=== PATIENT | female | born 1950 | race Caucasian/White ===

== ENCOUNTER → 2017-01-02 | Outpatient (CLI) | payer BC ==
[~2017-01-02] MED LIST: DIAZIDE; POTA10CA28 PO; SIMV20TA2 PO; SYN75 PO
[2017-01-02 12:24] LABS: URINE APPEARANCE CLEAR (CLEAR); URINE BILIRUBIN NEG (NEG); URINE COLOR YELLOW; URINE NITRITE NEG (NEG); URINE PH 6.5 (4.5-7.5); URINE SPECIFIC GRAVITY 1.013 (1.000-1.030); UROBILINOGEN NEG (NEG)
[2017-01-02 12:35] LABS: MANUAL MICROSCOPIC REQUIRED? NO; REVIEW REQ? NO
== END | disposition home or self-care (01) ==
LOC: C.LAB1850 10:06
PROVIDERS: ATTEND Family Medicine
DX: R39.9 Unspecified symptoms and signs involving the genitourinary system (principal)

== ENCOUNTER → 2017-02-24 | Outpatient (CLI) | payer BC ==
--- NOTE | 2017-02-24 14:33 | DIAGNOSTIC IMAGING REPORT ---
LEFT SHOULDER 3 VIEWS CLINICAL HISTORY: Left shoulder pain. FINDINGS: 3 views of the left shoulder are obtained. No prior studies are available for comparison at the time of dictation. The skeletal structures are osteopenic. No fracture or dislocation is seen. Productive degenerative change is identified at the acromioclavicular joint. The glenohumeral articulation is preserved. Calcific tendinopathy is noted. The overlying soft tissues are otherwise normal as imaged. The visualized left lung parenchyma appears clear. IMPRESSION: 1. Osteopenia and mild arthritic change as above. No acute bony abnormality is seen. 2. Calcific tendinopathy is noted. Electronically signed by: Larry Torres M.D. 02/24/2017 2:32 PM Dictated Date/Time: 02/24/2017 2:31 PM
== END | disposition home or self-care (01) ==
LOC: C.RDSM 14:16
PROVIDERS: ATTEND Family Medicine
DX: M85.812 Other specified disorders of bone density and structure, left shoulder (principal); M89.8X1 Other specified disorders of bone, shoulder; M75.32 Calcific tendinitis of left shoulder

== ENCOUNTER → 2017-03-10 | Outpatient (CLI) | payer BC ==
--- NOTE | 2017-03-10 10:39 | DIAGNOSTIC IMAGING REPORT ---
RIGHT ANKLE 3 VIEWS HISTORY: M25.571 Right ankle [id number] COMPARISON: None. FINDINGS: There is no fracture or dislocation. Diffuse soft tissue swelling. Punctate ossific density adjacent to the medial malleolus consistent with an old avulsion injury. Small plantar and posterior calcaneal spurs. Calcification at the distal attachment of the Achilles tendon which is likely chronic. No radiopaque foreign bodies. IMPRESSION: No fractures. Diffuse soft tissue swelling. Electronically signed by: Hany Graves M.D. 03/10/2017 10:38 AM Dictated Date/Time: 03/10/2017 10:37 AM
== END | disposition home or self-care (01) ==
LOC: C.RAD1850 10:08
PROVIDERS: ATTEND Nurse Practitioner Adult Health
DX: M25.571 Pain in right ankle and joints of right foot (principal); R60.0 Localized edema

== ENCOUNTER → 2017-03-12 | Outpatient (CLI) | payer BC ==
--- NOTE | 2017-03-12 13:53 | MAMMOGRAPHY REPORT ---
BILATERAL DIGITAL SCREENING MAMMOGRAM WITH CAD: 03/12/2017 CLINICAL HISTORY: Routine screening. Patient has no complaints. TECHNIQUE: Current study was also evaluated with a Computer Aided Detection (CAD) system. Bilateral CC and MLO views were obtained. COMPARISON: Comparison is made to exams dated: 03/06/2016 mammogram, 03/05/2015 mammogram, 02/23/2014 m ammogram, 01/31/2013 mammogram, 01/28/2012 mammogram, and 01/26/2012 mammogram - [facility] enter. BREAST COMPOSITION: There are scattered areas of fibroglandular density in both breasts. FINDINGS: No suspicious masses, calcifications, or areas of architectural distortion are noted in ei ther breast. There has been no significant interval change compared to prior exams. IMPRESSION: ACR BI-RADS CATEGORY 1: NEGATIVE There is no mammographic evidence of malignancy. A 1 year screening mammogram is recommended. The pa tient will receive written notification of the results. Approximately 10% of breast cancers are not detected with mammography. A negative mammographic report should not delay biopsy if a clinically suggestive mass is present. Kelly Fajardo M.D. /:03/12/2017 07:39:23 Container Finishing Inspector: Emely GRIGGS(Erika)(M), [facility] letter sent: Normal 1/2 BI-RADS Code: ACR BI-RADS Category 1: Negative
== END | disposition home or self-care (01) ==
LOC: C.MAMM 06:57
PROVIDERS: ATTEND Family Medicine
DX: Z12.31 Encounter for screening mammogram for malignant neoplasm of breast (principal)

== ENCOUNTER → 2017-08-05 | Outpatient (CLI) | payer OTHER | END | disposition home or self-care (01) | LOC: C.LAB1850 11:01 | PROVIDERS: ATTEND Family Medicine | DX: E03.9 Hypothyroidism, unspecified (principal) ==